=== PATIENT | male | born 1950 | race Caucasian/White ===

== ENCOUNTER → 2017-02-10 | Outpatient (REF) | payer BC ==
[2017-02-10 17:23] LABS: HIV 1/2 Antibodies Non-Reactive; HIV-1p24 Antigen Non-Reactive
[2017-02-11 15:53] LABS: HEPATITIS B SURFACE AB-QL Negative (())
== END ==
LOC: EDSTATUS 08:28 → ZMSC 12:00 → ZCOL.LAB 15:29
PROVIDERS: Orthopaedic Surgery
DX: Z01.89 Encounter for other specified special examinations (principal)

== ENCOUNTER 2019-02-07 14:50 | Day surgery (SDC) | payer MEDICARE, OTHER ==
[~2019-02-07] VITALS: Ht 175.3 cm; Wt 74.7 kg
[2019-02-07] VITALS (10 sets, daily range): BP systolic 99–148; BP diastolic 54–80; PULSE 55–59; TEMP 97–98
--- NOTE | 2019-02-07 16:45 | NUR ---
Patient will be going to surgery soon. IV started to left hand. IVF's infusing with straight tubing. Pre-Ops given. Cosnent signed and placed on chart. Patients daughter is not here yet but will be by later. No other changes at this time.
[2019-02-07] MEDS ORDERED: ZIAC 5/6.25MG T1 TAB PO ×2 (16:48→16:49)
[2019-02-07] MEDS ORDERED: MULTI VITAMINS1 TAB PO (16:50)
[2019-02-07] MEDS ORDERED: OSTEO-BI-FLEX 21 TAB PO (16:50)
[2019-02-07] MEDS ORDERED: ZOCOR 20MG20 MG PO (16:51)
[2019-02-07] MEDS ORDERED: FLOMAX 0.40.4 MG/CAP PO (16:52)
[2019-02-07] MEDS ORDERED: ULTRAM 50MG TAB50 MG PO (16:53)
[2019-02-07] MEDS ORDERED: ELIQUIS 5MG PO (16:54)
[2019-02-07] MEDS ORDERED: ZIAC 10/6.25M1 UDTAB PO (16:54)
[2019-02-07] MEDS ORDERED: OMEGA-3 1000 MG1 CAP PO (17:00)
--- NOTE | 2019-02-07 18:55 | NUR ---
REPORT RECEIVED FROM PACU. ARRIVED TO ROOM 222 VIA BED. VS STABLE. DENIES PAIN AT THIS TIME. CBI RUNNING AT MODERATE A RATE WITHOUT DIFFICULTY. OUTPUT IS RED WITH SOME SMALL CLOTS NOTED. IV FLUIDS SWITCHED OVER TO PUMP-LR @ 100ml/hr. DENIES QUESTIONS OR CONCERNS AT THIS TIME. WATER PROVIDED BUT STATES HE IS NOT INTERESTED IN DRINKING OF YET. CALL LIGHT WITHIN REACH. BED IN LOW POSITION AND WHEELS LOCKED. WILL MONITOR.
--- NOTE | 2019-02-07 21:30 | NUR ---
THIS NURSE TO ROOM TO EVALUATE CBI. C/O PRESSURE IN BLADDER AREA. NOTED TO BE DISTENDED. CBI STILL RUNNING MODERATELY WITH BRIGHT RED RETURN. SEVERAL SMALL CLOTS IN TUBING. IRRIGATED CATH WITH NORMAL SALINE VIA BULB SYRINGE. THREE QUARTER SIZE CLOTS PASSED. BABB DRAINING BETTER AND PATIETN STATES PRESSURE HAS BEEN RELIEVED. ENCOURAGED TO CALL FOR ANY QUESTIONS OR CONCERNS. VERBALIZES UNDERSTANDING. WILL MONITOR.
[2019-02-08] VITALS: BP 105/61; PULSE 65; TEMP 97.8
[2019-02-08 04:00] VITALS: BP 107/58; PULSE 58; TEMP 97.5
[2019-02-08 07:15] VITALS: BP 121/61; PULSE 61; TEMP 97.3
--- NOTE | 2019-02-08 07:25 | NUR ---
ORDERS GIVEN TO SALINE LOCK IV AND TO CLAMP CBI. CECILIA GIBBS TO THIS NURSE.
--- NOTE | 2019-02-08 08:00 | NUR ---
PATIENT RESTING IN BED THIS AM. PATIENT IS A&OX4. VSS. LUNG BASES DIMINISHED BILATERALLY UPON AUSCULTATION. PATIENT DENIES SOB OR A PRODUCTIVE COUGH. BOWEL SOUNDS ACTIVE ALL FOUR QUADRANTS. PATIENT TOLERATING DIET WITHOUT COMPLAINTS OF N/V. BABB CATHETER TO DEPENDENT DRAINAGE WITH MODERATE AMOUNTS OF SINGH RED URINE WITH CLOST RPESENT IN BABB BAG. LEFT WRIST TO INT. PATIENT DENIES ANY NEEDS AT THIS TIME. CALL LIGHT WITHIN REACH.
--- NOTE | 2019-02-08 09:58 | NUR ---
Initial visit; Patient thanked [employer] for looking in on him and offering God's blessings.
[2019-02-08 11:58] VITALS: BP 116/60; PULSE 55; TEMP 97.4
--- NOTE | 2019-02-08 13:40 | NUR ---
SW met with patient and family to discuss discharge planning. Patient lives independently at home with family. Patient's PCP is Dr Perla and he obtains prescriptions from [facility] in [place]. Patient does not use any home health serives or DME in the home. Patient reports he does have a DPOA in place. SW does not anticipate any discharge needs.
[2019-02-08 15:35] VITALS: BP 112/55; PULSE 58; TEMP 98.4
--- NOTE | 2019-02-08 19:00 | NUR ---
PATIENT'S LEFT HAND INT DC'D PER PENDING DISCHARGE. PATIENT TOLERATED WELL. DISCHARGE INSTRUCTIONS REVIEWED WITH PATIENT AND DAUGHTER. LEG BAG AND BABB TEACHING COMPLETE. ALL QUESTIONS ANSWERED. PATIENT PERSONAL BELONGINGS GATHERED. PATIENT AMBULATED TO PERSONAL VEHICLE WITH SURGICAL STAFF. PATIENT DISCHARGED.
== END 2019-02-08 19:00 | disposition home or self-care (01) ==
LOC: SDCO 14:50 → SURG 14:52 → SDCO 16:30
DX: N40.1 Benign prostatic hyperplasia with lower urinary tract symptoms (principal); N13.8 Other obstructive and reflux uropathy; R33.8 Other retention of urine; R31.0 Gross hematuria; Z96.0 Presence of urogenital implants; Z79.01 Long term (current) use of anticoagulants; Z79.899 Other long term (current) drug therapy; I10 Essential (primary) hypertension; E78.5 Hyperlipidemia, unspecified; Z85.038 Personal history of other malignant neoplasm of large intestine
CPT/HCPCS: OP; A9284; J0690; J1100; J2405; J2704; J3010; J7120